=== PATIENT | male | born 1955 | race Caucasian/White ===

== ENCOUNTER 2017-01-28 07:45 | Emergency (ER) | payer SELFPAY ==
[~2017-01-28] VITALS: Ht 177.8 cm; Wt 88.5 kg
[2017-01-28 11:07] VITALS: BP 142/78
== END 2017-01-28 11:07 | disposition home or self-care (01) ==
LOC: ED 07:45
DX: S01.512A Laceration without foreign body of oral cavity, initial encounter (principal); I10 Essential (primary) hypertension; E11.9 Type 2 diabetes mellitus without complications; F32.9 Major depressive disorder, single episode, unspecified; N40.0 Benign prostatic hyperplasia without lower urinary tract symptoms; M54.9 Dorsalgia, unspecified; X58.XXXA Exposure to other specified factors, initial encounter; Y93.89 Activity, other specified; Y92.89 Other specified places as the place of occurrence of the external cause; Y99.8 Other external cause status
CPT/HCPCS: J1885

== ENCOUNTER 2017-01-28 19:27 | Emergency (ER) | payer SELFPAY ==
[~2017-01-28] VITALS: Ht 177.8 cm; Wt 83.9 kg
[2017-01-29 06:49] LABS: CALCIUM 8.4 mg/dL (8.5-10.1); CARBON DIOXIDE 26.1 mmol/L (21-32); CHLORIDE SERUM 102 mmol/L (98-107); CREATININE SERUM 0.6 mg/dL (0.7-1.3); GFR1 > 60 mL/min; GLUCOSE SERUM 236 mg/dL (74-106); POTASSIUM SERUM 3.6 mmol/L (3.5-5.1); SODIUM SERUM 138 mmol/L (136-145)
[2017-01-29 08:16] VITALS: BP 175/94
== END 2017-01-29 08:16 | disposition home or self-care (01) ==
LOC: ED 19:27
PROVIDERS: Emergency Medicine
DX: E11.65 Type 2 diabetes mellitus with hyperglycemia (principal); S01.511D Laceration without foreign body of lip, subsequent encounter; Y09 Assault by unspecified means; Y99.8 Other external cause status; Y92.89 Other specified places as the place of occurrence of the external cause

== ENCOUNTER 2017-01-29 21:32 | Emergency (ER) | payer SELFPAY ==
[2017-01-29 21:36] VITALS: BP 131/102
== END 2017-01-29 23:30 | disposition home or self-care (01) ==
LOC: ED 21:32
DX: M54.5 Low back pain (principal); I10 Essential (primary) hypertension; E11.9 Type 2 diabetes mellitus without complications
CPT/HCPCS: J1885